=== PATIENT | male | born 1955 | race Caucasian/White ===

== ENCOUNTER 2017-12-11 20:47 | Emergency (ER) | payer OTHER ==
[~2017-12-11] VITALS: Ht 170.2 cm; Wt 74.8 kg
[~2017-12-11 20:47] MED LIST: CATAFLAM50 MG PO; GLIPIZIDE10 MG/BOT1; KETO10TA2 PO; LIPITOR20 MG; METFORMIN HCL500 M2; MILLIPRED DP5 M1 PO; SEPTRA DS TABLE1 TAB PO; TAMS0.4C PO; TRAMADOL HCL50 MG PO; ZOCOR20 MG
[2017-12-12] MEDS ORDERED: KETO10TA2 PO (05:22)
[2017-12-12] MEDS ORDERED: TAMS0.4C PO (05:22)
== END 2017-12-12 05:29 ==
LOC: ER 20:47
DX: N20.1 Calculus of ureter (principal); N20.0 Calculus of kidney

== ENCOUNTER 2018-03-27 11:06 | Emergency (ER) | payer OTHER ==
[~2018-03-27] VITALS: Ht 170.2 cm; Wt 76.2 kg
[2018-03-27] MEDS ORDERED: KETO10TA2 PO (15:58)
[2018-03-27] MEDS ORDERED: LEVSIN/SL0.125 MG PO (15:58)
[2018-03-27] MEDS ORDERED: PEPCID AC20 MG PO (15:58)
[2018-03-27] MEDS ORDERED: INTESTINEX680 M1 PO (15:58)
== END 2018-03-27 16:28 | disposition home or self-care (01) ==
LOC: ER 11:06
DX: I88.0 Nonspecific mesenteric lymphadenitis (principal); R10.32 Left lower quadrant pain

== ENCOUNTER 2018-05-13 10:58 | Emergency (ER) | payer OTHER ==
[~2018-05-13] VITALS: Ht 170.2 cm; Wt 77.1 kg
[~2018-05-13 10:58] MED LIST changes: +INTESTINEX680 M1 PO; +LEVSIN/SL0.125 MG PO; +PEPCID AC20 MG PO
[2018-05-13] MEDS ORDERED: BENADRYL25 MG PO (15:39)
[2018-05-13] MEDS ORDERED: AMOX1TAB5 PO (15:39)
[2018-05-13] MEDS ORDERED: MOMETASONE FURO45 GM TOP (15:39)
== END 2018-05-13 16:17 | disposition home or self-care (01) ==
LOC: ER 10:58
DX: R21 Rash and other nonspecific skin eruption (principal); R73.9 Hyperglycemia, unspecified

== ENCOUNTER 2020-06-02 10:47 | Inpatient (IN) | payer OTHER ==
[~2020-06-02] VITALS: Ht 170.2 cm; Wt 74.8 kg
[~2020-06-02 10:47] MED LIST changes: +AMOX1TAB5 PO; +BENADRYL25 MG PO; +MOMETASONE FURO45 GM TOP
[2020-06-02] MEDS ORDERED: CLONAZEPAM1 M1 PO (11:17)
[2020-06-02] MEDS ORDERED: ZESTRIL20 MG PO (11:17)
== END 2020-06-06 16:43 | disposition home or self-care (01) | DRG 661 ==
LOC: ER 10:47 → SURH 18:19
PROVIDERS: Urology; ADMIT Internal Medicine; ATTEND Internal Medicine
PROC: BW21ZZZ Computerized Tomography (CT Scan) of Abdomen and Pelvis (ICD-10-PCS; 2020-06-02)
PROC: 0TC78ZZ Extirpation of Matter from Left Ureter, Via Natural or Artificial Opening Endoscopic (ICD-10-PCS; 2020-06-05)
PROC: 0T978ZZ Drainage of Left Ureter, Via Natural or Artificial Opening Endoscopic (ICD-10-PCS; principal; 2020-06-05 07:00)
DX: N13.2 Hydronephrosis with renal and ureteral calculous obstruction (principal); E11.9 Type 2 diabetes mellitus without complications; I10 Essential (primary) hypertension; E86.0 Dehydration; Z20.828 Contact with and (suspected) exposure to other viral communicable diseases

== ENCOUNTER 2020-06-20 14:08 | Emergency (ER) | payer OTHER ==
[~2020-06-20] VITALS: Ht 170.2 cm; Wt 75.3 kg
[~2020-06-20 14:08] MED LIST changes: +CLONAZEPAM1 M1 PO; +ZESTRIL20 MG PO
== END 2020-06-20 21:24 | disposition home or self-care (01) ==
LOC: ER 14:08
DX: N40.0 Benign prostatic hyperplasia without lower urinary tract symptoms (principal); R31.0 Gross hematuria; R10.31 Right lower quadrant pain; R10.32 Left lower quadrant pain; Z03.818 Encounter for observation for suspected exposure to other biological agents ruled out

== ENCOUNTER 2021-06-16 11:03 | Emergency (ER) | payer OTHER ==
[~2021-06-16] VITALS: Ht 170.2 cm; Wt 74.8 kg
[2021-06-16] MEDS ORDERED: CLONAZEPAM1 MG PO (11:46)
[2021-06-16] MEDS ORDERED: ESCITALOPRAM OX10 MG PO (11:46)
[2021-06-16] MEDS ORDERED: JANUMET XR 1001 EACH PO (11:47)
[2021-06-16] MEDS ORDERED: AMLODIPINE-BEN1 EAC2 PO (11:47)
== END 2021-06-16 13:39 | disposition home or self-care (01) ==
LOC: ER 11:03
DX: R53.81 Other malaise (principal); F41.8 Other specified anxiety disorders; Z76.0 Encounter for issue of repeat prescription

== ENCOUNTER 2021-09-17 20:42 | Emergency (ER) | payer OTHER ==
[~2021-09-17] VITALS: Ht 170.2 cm; Wt 74.8 kg
[~2021-09-17 20:42] MED LIST changes: +AMLODIPINE-BEN1 EAC2 PO; +CLONAZEPAM1 MG PO; +ESCITALOPRAM OX10 MG PO; +JANUMET XR 1001 EACH PO
[2021-09-18] MEDS ORDERED: KETO10TA2 PO (00:07)
== END 2021-09-18 03:04 | disposition home or self-care (01) ==
LOC: ER 20:42
DX: R10.84 Generalized abdominal pain (principal); N20.0 Calculus of kidney; E11.65 Type 2 diabetes mellitus with hyperglycemia; Z79.84 Long term (current) use of oral hypoglycemic drugs; I10 Essential (primary) hypertension

== ENCOUNTER 2021-09-24 14:33 | Emergency (ER) | payer OTHER ==
[~2021-09-24] VITALS: Ht 170.2 cm; Wt 74.8 kg
[2021-09-24] MEDS ORDERED: DICLOFENAC SODI75 MG PO (19:00)
== END 2021-09-24 19:24 | disposition home or self-care (01) ==
LOC: ER 14:33
DX: M54.89 Other dorsalgia (principal); Z79.84 Long term (current) use of oral hypoglycemic drugs; E11.9 Type 2 diabetes mellitus without complications

== ENCOUNTER 2021-10-12 22:38 | Emergency (ER) | payer OTHER ==
[~2021-10-12] VITALS: Ht 170.2 cm; Wt 74.8 kg
[~2021-10-12 22:38] MED LIST changes: +DICLOFENAC SODI75 MG PO
[2021-10-13] MEDS ORDERED: TAMS0.4C PO (07:46)
[2021-10-13] MEDS ORDERED: ULTRAM50 MG PO (07:46)
== END 2021-10-13 08:13 ==
LOC: ER 22:38
DX: N20.1 Calculus of ureter (principal); N20.0 Calculus of kidney; K57.90 Diverticulosis of intestine, part unspecified, without perforation or abscess without bleeding; R10.31 Right lower quadrant pain; E11.9 Type 2 diabetes mellitus without complications; Z79.899 Other long term (current) drug therapy

== ENCOUNTER 2022-05-23 11:14 | Emergency (ER) | payer OTHER ==
[~2022-05-23] VITALS: Ht 170.2 cm; Wt 70.3 kg
[~2022-05-23 11:14] MED LIST changes: +ULTRAM50 MG PO
[2022-05-23] MEDS ORDERED: POTASSIUM CITR15 MEQ (11:44)
[2022-05-23] MEDS ORDERED: JARDIANCE10 MG (11:44)
[2022-05-23] MEDS ORDERED: ADCIRCA20 MG (11:45)
[2022-05-23] MEDS ORDERED: GLIMEPIRIDE4 MG (11:45)
[2022-05-23] MEDS ORDERED: RISPERDAL1 MG (11:46)
[2022-05-23] MEDS ORDERED: BUPROPION HCL100 MG (11:46)
[2022-05-23] MEDS ORDERED: LOSARTAN-HCTZ1 EACH (11:47)
[2022-05-23] MEDS ORDERED: CARDURA1 MG (11:48)
== END 2022-05-23 15:11 | disposition home or self-care (01) ==
LOC: ER 11:14
DX: N20.1 Calculus of ureter (principal); K57.30 Diverticulosis of large intestine without perforation or abscess without bleeding; Z87.442 Personal history of urinary calculi

== ENCOUNTER 2022-09-05 09:59 | Emergency (ER) | payer OTHER ==
[~2022-09-05] VITALS: Ht 170.2 cm; Wt 74.8 kg
[~2022-09-05 09:59] MED LIST changes: +ADCIRCA20 MG; +BUPROPION HCL100 MG; +CARDURA1 MG; +GLIMEPIRIDE4 MG; +JARDIANCE10 MG; +LOSARTAN-HCTZ1 EACH; +POTASSIUM CITR15 MEQ; +RISPERDAL1 MG
== END 2022-09-05 13:34 | disposition home or self-care (01) ==
LOC: ER 09:59
DX: S90.852A Superficial foreign body, left foot, initial encounter (principal); X58.XXXA Exposure to other specified factors, initial encounter; Y93.9 Activity, unspecified; Y92.89 Other specified places as the place of occurrence of the external cause; Y99.9 Unspecified external cause status; I10 Essential (primary) hypertension; E11.9 Type 2 diabetes mellitus without complications; Z79.84 Long term (current) use of oral hypoglycemic drugs

== ENCOUNTER 2023-01-14 13:17 | Emergency (ER) | payer OTHER ==
[~2023-01-14] VITALS: Ht 170.2 cm; Wt 74.8 kg
== END 2023-01-14 17:43 | disposition home or self-care (01) ==
LOC: ER 13:17
DX: R10.31 Right lower quadrant pain (principal); E11.9 Type 2 diabetes mellitus without complications; Z79.84 Long term (current) use of oral hypoglycemic drugs; I10 Essential (primary) hypertension
CPT/HCPCS: 36415; 71046; 72131; 74176; 93005; 96372; 99284; J1885

== ENCOUNTER 2023-02-23 19:26 | Emergency (ER) | payer OTHER ==
[~2023-02-23] VITALS: Ht 170.2 cm; Wt 74.8 kg
== END 2023-02-24 08:24 | disposition left against medical advice (07) ==
LOC: ER 19:26
PROVIDERS: General Practice
DX: I21.4 Non-ST elevation (NSTEMI) myocardial infarction (principal); Z20.822 Contact with and (suspected) exposure to COVID-19
CPT/HCPCS: 36415; 71045; 93005; 96372; 99284; J1650; J1885; J2360

== ENCOUNTER 2023-06-08 08:28 | Inpatient (IN) | payer OTHER ==
[~2023-06-08] VITALS: Ht 152.4 cm; Wt 72.6 kg
[2023-06-08] MEDS ORDERED: PLAVIX75 MG PO (08:53)
[2023-06-08] MEDS ORDERED: AMIODARONE HCL100 MG PO (08:54)
[2023-06-08] MEDS ORDERED: AMLODIPINE-OLM1 EAC2 PO (08:54)
[2023-06-08] MEDS ORDERED: ATORVASTATIN CA40 MG PO (08:55)
[2023-06-08] MEDS ORDERED: VAZALORE81 MG PO (08:55)
[2023-06-08 10:21] LABS: HEMATOCRIT 39.6 % (39.0-48.0); HEMOGLOBIN 12.9 g/dL (13-16.00); MEAN CELL VOLUME 84.6 fL (80.0-100.00); MEAN CORPUSCULAR HEMOGLOBIN 27.4 pg (27.00-32.0); MEAN CORPUSCULAR HGB CONC 32.4 g/dl (32.0-36.0); PLATELET COUNT 132 K/uL (150-450); RED BLOOD COUNT 4.68 M/uL (4.00-6.00); RED CELL DISTRIBUTION WIDTH 15.8 % (11.5-14.5)
[2023-06-08 10:39] LABS: ALBUMIN 3.7 gm/dL (3.4-5.0); BILIRUBIN TOTAL 0.55 mg/dL (0.3-1.2); CALCIUM 9.1 mg/dL (8.5-10.1); CREATININE SERUM 1.85 mg/dL (0.70-1.30); GFR 36.54; POTASSIUM 5.01 mEq/L (3.5-5.1); TOTAL PROTEIN 7.4 gm/dL (6.4-8.2)
[2023-06-08 10:42] LABS: BILIRUBIN,CONJUGATED 0.1 mg/dL (0.0-0.2); BILIRUBIN,UNCONJUGATED 0.45 mg/dL (0.0-0.6)
[2023-06-08 19:53] LABS: ABG PO2 101.5 mmHg (80-100); ABG pCO2 36.9 mmHg (35-45); BASE EXCESS 2.1 mmol/l; BICARBONATE 25.7 mmol/l (23-25); SaO2 98.2 %; Tco2 26.8 mmol/l; allen test SATISFACTORY; o2 28 %; puncture site RADIAL LEFT
[2023-06-08 20:45] LABS: PH,URINE 5.5 (5.0-8.0); URINE APPEARANCE Clear; URINE BILIRRUBIN Negative (NEGATIVE); URINE BLOOD Negative; URINE COLOR Yellow; URINE LEUKOCYTE Negative; URINE NITRATE Negative; URINE PROTEIN Negative (NEGATIVE); URINE UROBILINOGEN 0.2 E.U./dl
[2023-06-08 20:59] LABS: URINE BACTERIA 3.7 uL (0.0-1933); URINE EPITHELIAL CELLS 0.9 uL (0.0-38.8); URINE GLUCOSE >=1000 MG/DL (NEGATIVE); URINE RBC 0.4 uL (0.0-20.8); URINE WBC 1.6 uL (0.0-23.2)
[2023-06-10 08:24] LABS: HEMATOCRIT 43.1 % (39.0-48.0); HEMOGLOBIN 14.2 g/dL (13-16.00); MEAN CELL VOLUME 84.4 fL (80.0-100.00); MEAN CORPUSCULAR HEMOGLOBIN 27.8 pg (27.00-32.0); PLATELET COUNT 184 K/uL (150-450); RED BLOOD COUNT 5.11 M/uL (4.00-6.00); RED CELL DISTRIBUTION WIDTH 15.9 % (11.5-14.5)
[2023-06-10 09:09] LABS: ALBUMIN 3.7 gm/dL (3.4-5.0); BILIRUBIN TOTAL 0.77 mg/dL (0.3-1.2); CALCIUM 9.4 mg/dL (8.5-10.1); CREATININE SERUM 1.71 mg/dL (0.70-1.30); GFR 40.01; GLOBULINA 3.5 G/DL (2.4-3.5); MAGNESIUM 2.2 mg/dL (1.8-2.4); PHOSPHOROUS 3.1 mg/dL (2.5-4.9); POTASSIUM 4.39 mEq/L (3.5-5.1); TOTAL PROTEIN 7.2 gm/dL (6.4-8.2)
[2023-06-10 17:48] LABS: MYCOPLASMA PNEUMONIAE IGM NON REACTIVE (NO REACTIVE)
[2023-06-10 19:20] LABS: URINE APPEARANCE Clear; URINE BILIRRUBIN Negative (NEGATIVE); URINE BLOOD Negative; URINE COLOR Yellow; URINE LEUKOCYTE Negative; URINE NITRATE Negative; URINE PROTEIN Negative (NEGATIVE); URINE UROBILINOGEN 0.2 E.U./dl
[2023-06-10 19:24] LABS: URINE BACTERIA 15.1 uL (0.0-1933); URINE WBC 3.2 uL (0.0-23.2)
[2023-06-10 19:33] LABS: URINE GLUCOSE >=1000 MG/DL (NEGATIVE); URINE RBC 1.1 uL (0.0-20.8)
[2023-06-11 19:09] LABS: PLEURAL FLUID COLOR YELLOW
[2023-06-11 19:10] LABS: PLEURAL FLUID APPEARANCE TURBID
[2023-06-11 19:33] LABS: MONONUCLEAR 95 %; POLYMORPHONUCLEAR 5 %
[2023-06-13 06:48] LABS: HEMATOCRIT 35.8 % (39.0-48.0); HEMOGLOBIN 11.8 g/dL (13-16.00); MEAN CELL VOLUME 81.4 fL (80.0-100.00); MEAN CORPUSCULAR HEMOGLOBIN 26.8 pg (27.00-32.0); PLATELET COUNT 228 K/uL (150-450); RED CELL DISTRIBUTION WIDTH 15.9 % (11.5-14.5)
[2023-06-13 07:15] LABS: ALBUMIN 3.1 gm/dL (3.4-5.0); BILIRUBIN TOTAL 0.73 mg/dL (0.3-1.2); CREATININE SERUM 2.05 mg/dL (0.70-1.30); GFR 32.45; GLOBULINA 3.3 G/DL (2.4-3.5); MAGNESIUM 2.1 mg/dL (1.8-2.4); PHOSPHOROUS 4.4 mg/dL (2.5-4.9); POTASSIUM 3.92 mEq/L (3.5-5.1); TOTAL PROTEIN 6.4 gm/dL (6.4-8.2)
[2023-06-13 07:17] LABS: C-REACTIVE PROTEIN 4.22 MG/DL (0.00-0.29)
[2023-06-13] MEDS ORDERED: LOSARTAN POTASS25 MG PO (10:34)
[2023-06-13] MEDS ORDERED: CLONAZEPAM0.5 MG PO (10:34)
[2023-06-13] MEDS ORDERED: CLONAZEPAM1 MG PO (10:34)
[2023-06-13] MEDS ORDERED: JARDIANCE10 MG PO (10:34)
[2023-06-13] MEDS ORDERED: TOPROL XL25 M1 PO (10:34)
[2023-06-13] MEDS ORDERED: ADULT ASPIRIN81 MG PO (10:34)
[2023-06-13] MEDS ORDERED: CLOPIDOGREL BIS75 MG PO (10:34)
[2023-06-13] MEDS ORDERED: LIPITOR40 M1 PO (10:34)
[2023-06-13] MEDS ORDERED: RISPERDAL1 MG PO (10:34)
[2023-06-13] MEDS ORDERED: AMIODARONE HCL100 MG PO (10:34)
[2023-06-13] MEDS ORDERED: LASIX20 MG PO (10:34)
[2023-06-13] MEDS ORDERED: VAZALORE81 MG PO (10:34)
[2023-06-13 11:48] LABS: ABG PH 7.461 (7.35-7.45); ABG PO2 85.1 mmHg (80-100); ABG pCO2 36.4 mmHg (35-45); BASE EXCESS 1.8 mmol/l; BICARBONATE 25.3 mmol/l (23-25); Tco2 26.5 mmol/l; allen test SATISFACTORY; puncture site RADIAL RIGHT
[2023-06-13 11:49] LABS: o2 21 %
== END 2023-06-13 15:04 | disposition home or self-care (01) | DRG 291 ==
LOC: ER 08:28 → ICU-2 19:25 → ICU 06-11 13:57
PROVIDERS: General Practice; Internal Medicine; Internal Medicine Critical Care Medicine; Internal Medicine Infectious Disease; Radiology Vascular & Interventional Radiology; ADMIT Internal Medicine; ATTEND Internal Medicine
PROC: B246ZZZ Ultrasonography of Right and Left Heart (ICD-10-PCS; principal; 2023-06-08)
PROC: BB24ZZZ Computerized Tomography (CT Scan) of Bilateral Lungs (ICD-10-PCS; 2023-06-09)
PROC: 02HV33Z Insertion of Infusion Device into Superior Vena Cava, Percutaneous Approach (ICD-10-PCS; 2023-06-10)
PROC: 0W993ZZ Drainage of Right Pleural Cavity, Percutaneous Approach (ICD-10-PCS; 2023-06-11)
PROC: 0W993ZZ Drainage of Right Pleural Cavity, Percutaneous Approach (ICD-10-PCS; 2023-06-12)
DX: I50.23 Acute on chronic systolic (congestive) heart failure (principal); J18.9 Pneumonia, unspecified organism; I13.0 Hypertensive heart and chronic kidney disease with heart failure and stage 1 through stage 4 chronic kidney disease, or unspecified chronic kidney disease; N17.8 Other acute kidney failure; J90 Pleural effusion, not elsewhere classified; E11.22 Type 2 diabetes mellitus with diabetic chronic kidney disease; Z79.4 Long term (current) use of insulin; I25.10 Atherosclerotic heart disease of native coronary artery without angina pectoris; I25.5 Ischemic cardiomyopathy; R06.09 Other forms of dyspnea; Z87.891 Personal history of nicotine dependence

== ENCOUNTER 2023-07-11 16:52 | Emergency (ER) | payer OTHER ==
[~2023-07-11] VITALS: Ht 177.8 cm; Wt 72.6 kg
[~2023-07-11 16:52] MED LIST changes: +ADULT ASPIRIN81 MG PO; +AMIODARONE HCL100 MG PO; +AMLODIPINE-OLM1 EAC2 PO; +ATORVASTATIN CA40 MG PO; +CLONAZEPAM0.5 MG PO; +CLOPIDOGREL BIS75 MG PO; +JARDIANCE10 MG PO; +LASIX20 MG PO; +LIPITOR40 M1 PO; +LOSARTAN POTASS25 MG PO; +PLAVIX75 MG PO; +RISPERDAL1 MG PO; +TOPROL XL25 M1 PO; +VAZALORE81 MG PO
== END 2023-07-11 19:41 | disposition home or self-care (01) ==
LOC: ER 16:52
DX: M79.602 Pain in left arm (principal)